=== PATIENT | male | born 1970 | race Caucasian/White ===

== ENCOUNTER 2023-06-19 18:11 | Emergency (ER) | payer BC ==
[2023-06-19] MEDS ORDERED: XYLOCAINE 1% HCL 20 ML MDV IJ ONE (18:12)
[2023-06-19 18:24] VITALS: BP 161/99; PULSE 95; TEMP 99.1; O2SAT 97
[2023-06-19] MEDS ORDERED: KEFZOL 1 GM/50 ML PREMIX** 1 GM/50 ML IVPB IV STA (18:44)
[2023-06-19] MEDS ORDERED: Adacel Vial IM ONE ×2 (18:45→19:03)
--- NOTE | 2023-06-19 18:51 | ERPHSYRPT ---
- History of Present Illness Time Seen by Provider: 06/19/23 18:40 Source: patient Exam Limitations: no limitations Patient Subjective Stated Complaint: Pt cut his index finger on his right hand with a drill while trying to make a hole Triage Nursing Assessment: Pt was brought to the ER by his , hypertensive, rates pain as 5/10, right index finger cut just below the nail, able to move finger, pulses normal, skin n/w/d, doesn't appear to be in any distress Physician History: Patient is a 53-year-old white male who presents after injury to his right index finger distal phalanx. He was using a drill when he lacerated his finger at the base of the nail.He does have some weak movement of the finger and he has no sensation on the tip of the right index finger. Occurred: just prior to arrival Method of Injury: incised Quality: aching Severity of Pain-Max: moderate Severity of Pain-Current: moderate Extremities Pain Location: 2nd finger: right (Linear laceration across the base of the nailbed) Modifying Factors: Improves With: movement Associated Symptoms: none Allergies/Adverse Reactions: No Known Drug Allergies Allergy (Verified 06/19/23 18:24) Home Medications: Lisinopril 20 mg [Zestril 20 MG] 20 mg PO DAILY 06/19/23 [History] Hx Tetanus, Diphtheria Vaccination/Date Given: Yes (today) Hx Influenza Vaccination/Date Given: No Hx Pneumococcal Vaccination/Date Given: No Travel Risk - International Travel Have you traveled outside of the country in past 3 weeks: No - Coronavirus Screening Are you exhibiting any of the following symptoms?: No Close contact with a COVID-19 positive Pt in past 14-21 Days: No - Vaccine Status Have you recieved a Covid-19 vaccination: Yes Product Steward: Moderna - Vaccination Dates Date of 2cond Vaccination (if applicable): 2020 - Review of Systems Constitutional: No Fever, No Chills Eyes: No Symptoms Ears, Nose, & Throat: No Symptoms Respiratory: No Cough, No Dyspnea Cardiac: No Chest Pain, No Edema, No Syncope Abdominal/Gastrointestinal: No Abdominal Pain, No Nausea, No Vomiting, No Diarrhea Genitourinary Symptoms: No Dysuria Musculoskeletal: Joint Pain, No Back Pain, No Neck Pain Skin: No Rash Neurological: No Dizziness, No Focal Weakness, No Sensory Changes Psychological: No Symptoms Endocrine: No Symptoms All Other Systems: Reviewed and Negative - Past Medical History Pertinent Past Medical History: Yes Cardiac History: Hypertension - Past Surgical History Past Surgical History: Yes Gastrointestinal: Cholecystectomy - Social History Smoking Status: Never smoker Exposure to second hand smoke: No Drug Use: none Patient Lives Alone: No - Nursing Vital Signs Nursing Vital Signs: Initial Vital Signs Temperature 99.1 F 06/19/23 18:14 Pulse Rate 95 H 06/19/23 18:14 Blood Pressure 161/99 06/19/23 18:14 O2 Sat by Pulse Oximetry 97 06/19/23 18:14 Pain Scale Pain Intensity 5 - Physical Exam General Appearance: mild distress Eyes, Ears, Nose, Throat Exam: normal ENT inspection Neck Exam: normal inspection, non-tender, supple Cardiovascular/Respiratory Exam: no respiratory distress Shoulder Exam: normal inspection, non-tender Elbow/Forearm Exam: normal inspection, non-tender Wrist Exam: normal inspection, non-tender Hand Exam: limited ROM, nail injury, soft tissue tenderness (In addition to soft tissue x-ray does reveal an open fracture.) Neuro/Tendon Exam: sensory deficit (No sensation to the tip of the right index finger) Mental Status Exam: alert, oriented x 3 Skin Exam: warm, dry SpO2 Interpretation: normal SpO2: 97 O2 Delivery: Room Air Procedures - Splinting Time of Procedure: 18:50 Location of Splint: Right, Hand (Index finger laceration below the nailbed dressed cleaned and dressed secured with Steri-Strips and splinted.) Type of Splint: Foam Pad Finger Splint Splint Applied By: ED Nurse Pre-Proc Neuro Vasc Exam: abnormal (Numbness at the tip of the finger) Post-Proc Neuro Vasc Exam: unchanged from pre-exam - Course Nursing assessment & vital signs reviewed: Yes - Radiology Exams Right Hand X-ray Interpretation: Interpreted by me Ordered Tests: Medication Summary Discontinued Medications Generic Name Dose Route Start Last Admin Trade Name Freq PRN Reason Stop Dose Admin Hydrocodone Bitart/Acetaminophen 2 tab 06/19/23 18:59 06/19/23 19:09 Hydrocodone/Apap 5/325 1 Tab Tablet PO 06/19/23 19:00 2 tab SENT HOME W/ PATIENT ONE Administration Hydrocodone Bitart/Acetaminophen Confirm 06/19/23 18:59 Hydrocodone/Apap 5/325 1 Tab Tablet Administered 06/19/23 19:00 Dose 2 tab .ROUTE .STK-MED ONE Ceftriaxone Sodium Confirm 06/19/23 18:58 Ceftriaxone Sodium 1000 Mg Inj Vial Administered 06/19/23 18:59 Dose 1,000 mg .ROUTE .STK-MED ONE Ceftriaxone Sodium 1,000 mg 06/19/23 19:01 06/19/23 19:08 Ceftriaxone Sodium 500 Mg Vial IM 06/19/23 19:02 1,000 mg STAT ONE Administration Diphtheria/Tetanus/Acell Pertussis 0.5 ml 06/19/23 18:45 06/19/23 19:07 Tdap --Diph,Pertuss(Acell),Tet Vac/Pf 0.5 Ml Vial IM 06/19/23 18:46 0.5 ml .ONCE ONE Administration Diphtheria/Tetanus/Acell Pertussis Confirm 06/19/23 19:03 Tdap --Diph,Pertuss(Acell),Tet Vac/Pf 0.5 Ml Vial Administered 06/19/23 19:04 Dose 0.5 ml IM .STK-MED ONE Hydromorphone HCl 1 mg 06/19/23 18:59 06/19/23 19:08 Hydromorphone 1 Mg/1ml Inj IM 06/19/23 19:00 1 mg STAT ONE Administration Hydromorphone HCl Confirm 06/19/23 18:58 Hydromorphone 1 Mg/1ml Inj Administered 06/19/23 18:59 Dose 1 mg .ROUTE .STK-MED ONE Cefazolin Sodium/Dextrose 1 gm in 50 mls @ 100 mls/hr 06/19/23 18:44 06/19/23 19:09 Kefzol 1 Gm/50 Ml Premix IV 06/19/23 19:13 Not Given STAT STA Lidocaine HCl 2.1 ml 06/19/23 18:12 Lidocaine Hcl 1% 20 Ml Mdv 20 Ml Ml IJ 06/19/23 18:13 .STK-MED ONE - Progress Progress: unchanged Progress Note: 06/19/23 18:53 After obtaining x-rays and examining the patient and soaking the wound it was decided to contact Dr. Lucero hand surgeon we we will secure the finger with a dressing and a splint and we will give him Dr. Lucreo's office number and he is hopeful that he can see him in the next 1 or [address] Other (Dr. Lucero) Medical Desision Making - Discussion of managment Care discussed with:: specialist (Dr. Lucero hand surgeon) Agreed on:: Treatment plan, need for follow-up - Diagnostic Testing Radiological Interpretation: Interpreted by me - Risk of complications Minimal Risk: Minimal risk of morbidity - Departure Departure Disposition: Home Clinical Impression: Open fracture of phalanx of right index finger Clinical Impression: (Ruled Out): Open fracture of distal phalanx of left thumb Condition: Stable Critical Care Time: No Referrals: PEG HAMILTON PA [Primary Care Provider] - Follow up/PCP as directed Instructions: Wound Care (DC) Prescriptions: Hydrocodone/Acetaminophen [Hydrocodone-Acetamin 5-325 mg] 1 tab PO Q6HPRN PRN 3 Days #12 tablet MDD 4 PRN Reason: Pain Cephalexin Mh 500 mg [Keflex 500 mg] 500 mg PO QID #40 cap
[2023-06-19] MEDS ORDERED: Rocephin 1000 MG INJ ONE (18:58)
[2023-06-19] MEDS ORDERED: Hydromorphone 1 mg/ml Injection ONE (18:58)
--- NOTE | 2023-06-19 18:58 | XRAY ---
Indication: 2nd finger laceration with drill. Comparison: None 2 view right hand demonstrate mild displaced acute fracture shaft 2nd distal phalanx with soft tissue swelling/laceration. Elsewhere minimal/mild degenerative changes all IP joints. No other bony, articular, or soft tissue abnormalities.
[2023-06-19] MEDS ORDERED: Hydromorphone 1 mg/ml Injection IM ONE (18:59)
[2023-06-19] MEDS ORDERED: NORCO 5/325 MG ONE (18:59)
[2023-06-19] MEDS ORDERED: NORCO 5/325 MG PO ONE (18:59)
[2023-06-19] MEDS ORDERED: Rocephin 500 MG INJ IM ONE (19:01)
== END 2023-06-19 19:20 | disposition home or self-care (01) ==
LOC: ED 18:11
DX: S62.630B Displaced fracture of distal phalanx of right index finger, initial encounter for open fracture (principal); W29.8XXA Contact with other powered hand tools and household machinery, initial encounter; I10 Essential (primary) hypertension; Z79.891 Long term (current) use of opiate analgesic; Z79.899 Other long term (current) drug therapy; Z23 Encounter for immunization
CPT/HCPCS: 73120; 90471; 90715; 96372; 99283; J0696; J1170; A9270-GY

== ENCOUNTER 2023-12-01 08:38 | Day surgery (SDC) | payer BC ==
[2023-12-01] MEDS ORDERED: Lactated Ringers 1,000 ML IV ONE (08:52)
[2023-12-01 09:05] VITALS: RESP 16
[2023-12-01] MEDS: Lactated Ringers 1,000 ML IV SCH (09:08)
[2023-12-01] MEDS ORDERED: Versed 2 MG/2 ML Injection ONE (11:12)
[2023-12-01] MEDS ORDERED: Xylocaine-Mpf 2% 5 Ml Vial ONE (11:12)
[2023-12-01] MEDS ORDERED: DIPRIVAN 200 MG/20 ML IV ONE (11:12)
[2023-12-01 12:09] VITALS: BP 104/70; PULSE 76; TEMP 98.2; O2SAT 96
--- NOTE | 2023-12-01 12:56 | OP ---
SURGERY DATE: 12/01/2023 SURGERY TIME: 111 PREOPERATIVE DIAGNOSIS: 1. DUE FOR COLORECTAL CANCER SCREENING, AVERAGE RISK. POSTOPERATIVE DIAGNOSIS: 1. NORMAL COLONOSCOPY. PROCEDURE: 1. Colonoscopy. SURGEON: Morteza Kelsey M.D. ANESTHESIA: IV anesthesia. CONDITION: Stable. COMPLICATIONS: None. SPECIMENS: None. HISTORY OF PRESENT ILLNESS: The patient is a 53 year-old male. No family history of colon cancer. Presents for average screening colorectal cancer. The patient has never had a colonoscopy before. Discussed with him. He wants to proceed. FINDINGS: Good preparation. Normal colonoscopy. Greater than 6 minute withdrawal. 10 year screening. DESCRIPTION OF PROCEDURE: The patient was brought to the endoscopy suite. Routinely positioned. Appropriate time-out performed. IV anesthesia induced by anesthesia. The digital rectal exam and external exam are normal. Colonoscope is advanced to the cecum confirmed by the ileocecal valve and appendiceal orifice. The preparation is a good preparation. Greater than 6 minute withdrawal time. There are no lesions identified in the colon on withdrawal. This is a total normal colonoscopy. Retroflexion normal. The patient tolerated the procedure well. Is taken to recovery in stable condition. RECOMMENDATIONS: Recommend 10 year reminder for colonoscopy for screening.
== END 2023-12-01 12:15 | disposition home or self-care (01) ==
LOC: SDC 08:38
PROVIDERS: ATTEND Surgery
DX: Z12.11 Encounter for screening for malignant neoplasm of colon (principal)
CPT/HCPCS: J2250; J2704